=== PATIENT | male | born 1975 | race Caucasian/White ===

== ENCOUNTER 2017-09-27 15:07 | Emergency (ER) | payer MEDICAID, OTHER ==
[2017-09-27] MEDS ORDERED: IBUPROFEN 600 MG TAB PO ONE (15:45)
--- NOTE | 2017-09-27 16:54 | EDPHY ---
H & P Time Seen by Provider: 09/27/17 15:24 Smoking Status: Current every day smoker Constitutional: Initial Vital Signs Temperature (C) 36.1 C 09/27/17 15:17 Heart Rate 86 09/27/17 15:17 Respiratory Rate 18 09/27/17 15:17 Blood Pressure 126/89 H 09/27/17 15:17 O2 Sat (%) 96 09/27/17 15:17 O2 Delivery Mode Room Air Allergies/Adverse Reactions: No Known Allergies Allergy (Verified 06/23/13 14:51) Home Medications: Medication Instructions Recorded Cyclobenzaprine [Flexeril 10 MG 10 mg PO TID #0 tab 09/27/17 (*)] Lidocaine [Lidoderm] 1 each TP DAILY PRN #30 adh..patch 09/27/17 Meloxicam 7.5 mg PO DAILY #10 tablet 09/27/17 MDM/Departure - MDM Imaging Results: Imaging Impressions Shoulder X-Ray 09/27/17 15:44 Impression: No source for acute pain identified. Imaging: I viewed and interpreted images myself Medications Given: Discontinued Medications Ibuprofen (Motrin) 800 mg PO EDNOW ONE Stop: 09/27/17 15:46 Last Admin: 09/27/17 16:12 Dose: 800 mg - Depart Disposition: Home, Routine, Self-Care Clinical Impression: Tendinopathy of right rotator cuff Condition: Good Instructions: Rotator Cuff Tendinitis (ED) Additional Instructions: You were seen by Dr. Yue Torres today. Take the meloxicam as prescribed for anti inflammatory and pain relief. Use lidocaine patches as needed for pain relief. Use cyclobenzaprine and to the muscle spasm. Do not drive or operate heavy machinery while taking the cyclobenzaprine. Please follow up with Orthopedics, Dr. Olivas if no improvement in 1 week for discussion of steroid injection and PT referral. Return for any worsening or new concerns. Prescriptions: Cyclobenzaprine [Flexeril 10 MG (*)] 10 mg PO TID #0 tab Lidocaine [Lidoderm] 1 each TP DAILY PRN #30 adh..patch PRN Reason: pain Meloxicam 7.5 mg PO DAILY #10 tablet Referrals: NONE *PRIMARY CARE P,. [Primary Care Provider] - As per Instructions Jerry Olivas MD [Medical Doctor] - As per Instructions
[2017-09-27] MEDS ORDERED: LIDOCAINE 4%/MENTHOL 1% PATCH TD ONE ×2 (16:58→17:09)
[2017-09-27] MEDS ORDERED: CYCLOBENZAPRINE 10 MG TAB ONE (17:01)
[2017-09-27 17:09] VITALS: BP 138/85
[2017-09-27] MEDS ORDERED: PATCH REMOVAL 1 EA PATCH TD SCH ×2 (21:00)
== END 2017-09-27 17:08 | disposition home or self-care (01) ==
LOC: CED 15:07
DX: M75.101 Unspecified rotator cuff tear or rupture of right shoulder, not specified as traumatic (principal); F17.200 Nicotine dependence, unspecified, uncomplicated
CPT/HCPCS: 73030-PO